=== PATIENT | male | born 1995 | race Two or more races ===

== ENCOUNTER 2017-10-29 14:08 | Emergency (ER) | payer MEDICAID ==
[~2017-10-29] VITALS: Ht 182.9 cm; Wt 83.9 kg
[~2017-10-29 14:08] MED LIST: AUGMENTIN 875-1 EAC1 ORAL; BACTROBAN15 GM TP; ERYTHROMYCIN3.5 GM LEFT EYE; NKM
[2017-10-29 14:14] VITALS: BP 141/75
[2017-10-29] MEDS ORDERED: PROMETHAZINE-C118 M1 ORAL (14:39)
[2017-10-29] MEDS ORDERED: TYLENOL EXTRA500 MG ORAL (14:39)
--- NOTE | 2017-10-29 14:40 | Emergency Room Report ---
History of Present Illness General Chief Complaint: Flu Like Symptoms Source: Patient Present Illness HPI 22-year-old male patient presents to ER complaining of cough and congestion 2 days. Patient reports cough is dry. Patient denies blood in cough. Patient reports history of sick contacts at home with similar symptoms. Patient denies chest pain, shortness of breath, fever. Patient reports he has a nasal spray at home that he has not begun to use yet. Patient reports cough is worse at night. Patient reports he has not taken any medication for relief of symptoms. Patient denies nausea, vomiting, diarrhea, neck pain. Patient denies sore throat , ear pain, headache. Allergies: Coded Allergies: No Known Allergies (Unverified , 01/22/13) Patient History Past Medical History: see triage record Reviewed Nursing Documentation: PMH: Agreed; PSxH: Agreed Nursing Documentation-PMH Past Medical History: No Stated History Review of Systems All Other Systems: negative except mentioned in HPI Physical Exam Vital Signs Date Time Temp Pulse Resp B/P (MAP) Pulse Ox O2 Delivery O2 Flow Rate FiO2 10/29/17 14:12 98.0 76 20 141/75 97 Room Air 98.1 Sp02 EP Interpretation: reviewed, normal General Appearance: well appearing, no apparent distress, alert, GCS 15, non- toxic Head: normocephalic, atraumatic Eyes: bilateral eye normal inspection, bilateral eye PERRL ENT: hearing grossly normal, normal pharynx, no angioedema, normal voice, TMs + canals normal, uvula midline, moist mucus membranes Neck: full range of motion Respiratory: lungs clear, normal breath sounds, no rhonchi, no respiratory distress, no accessory muscle use, no wheezing, speaking full sentences, other - no stridor Cardiovascular #1: regular rate, rhythm, no edema Musculoskeletal: back normal, digits/nails normal, gait/station normal, normal range of motion, non-tender Neurologic: alert, oriented x3, responsive, motor strength/tone normal, sensory intact Psychiatric: mood/affect normal Lymphatic: no adenopathy Medical Decision Making PA Attestation Dr. Fuller is my supervising Physician whom patient management has been discussed with. Diagnostic Impression: Primary Impression: Upper respiratory infection ER Course Pt presents to ED c/o cough and congestion. DDX considered but are not limited to influenza, viral URI, strep throat, rhinitis, sinusitis, otitis media. Low suspicion for pneumonia, will not order CXR at this time. VITAL SIGNS are WNL, patient is afebrile. Blood pressure mildly elevated patient denies chest pain shortness of breath vision changes abdominal pain. Does not require acute intervention ER. Patient instructed to follow-up with primary care doctor. CURES report negative. ER COURSE: Lungs clear to auscultation, no wheezes, rhonci or rales, patient is afebrile, low suspicion for pneumonia. Does not require imaging at this time. Likely viral etiology of symptoms. Symptomatic treatment. Followup with PCP for further treatment and/or referral as needed. Do not think nasal spray formula 3 days for patient of possible rhinitis medicamentosa if patient uses more than 3 days. DISCHARGE: -Rx given for Tylenol/Acetaminophen -Rx given for Promethazine with codeine syrup for cough sx. At this time pt is stable for d/c to home. Patient is resting comfortably, in no acute distress, nontoxic appearing. Patient to take medications as instructed Will provide with patient care instructions and any necessary prescriptions. Care plan and follow-up instructions provided. Patient instructed to follow-up with primary care provider in 3 - 5 days. Patient questions asked and answered. Patient reports understanding and agreement to treatment plan. ER precautions given. Patient instructed to return to ER immediately for any new or worsening of symptoms including but not limited to increasing SOB, persistent fever, intractable vomiting. Last Vital Signs Date Time Temp Pulse Resp B/P (MAP) Pulse Ox O2 Delivery O2 Flow Rate FiO2 10/29/17 14:14 76 20 Room Air 10/29/17 14:14 98.1 141/75 97 98.1 Disposition: HOME, SELF-CARE Condition: Stable Scripts Acetaminophen* (TYLENOL EXTRA STRENGTH*) 500 Mg Tablet 500 MG ORAL Q8H PRN for Prn Headache/Temp > 101, #30 TAB 0 Refills Prov: Augustin Boyer.A. 10/29/17 Codeine/Promethazine Hcl* (PROMETHAZINE-CODEINE SYRUP*) 118 Ml Syrup 5 ML ORAL Q6H PRN for For Cough, #118 ML 0 Refills Prov: Augustin Boyer P.A. 10/29/17 Patient Instructions: Upper Respiratory Infection, Adult Additional Instructions: Followup with primary care provider in 3 -5 days. Take medications as directed. Patient questions asked and answered. ER precautions given, patient instructed to return to ER immediately for any new or worsening of symptoms. Augustin Boyer Oct 29, 2017 14:40
[2017-10-29 14:46] VITALS: BP 138/72
== END 2017-10-29 14:46 | disposition home or self-care (01) ==
LOC: EMR 14:25
DX: J06.9 Acute upper respiratory infection, unspecified (principal)
CPT/HCPCS: 99284

== ENCOUNTER 2018-07-16 11:18 | Emergency (ER) | payer MEDICAID ==
[~2018-07-16] VITALS: Ht 180.3 cm; Wt 90.7 kg
[~2018-07-16 11:18] MED LIST changes: +PROMETHAZINE-C118 M1 ORAL; +TYLENOL EXTRA500 MG ORAL
[2018-07-16 11:47] VITALS: BP 138/79
--- NOTE | 2018-07-16 11:48 | NUR ---
ED Nurse Note: A/Ox4. Ambulated in to ER due to runny nose and cough x 3 days. Denies fever and chill.
[2018-07-16] MEDS ORDERED: PROMETHAZINE-C118 M1 ORAL (12:11)
[2018-07-16] MEDS ORDERED: TYLENOL EXTRA500 MG ORAL (12:11)
[2018-07-16] MEDS ORDERED: SUDAFED PE PRE1 EACH PO (12:11)
--- NOTE | 2018-07-16 12:11 | Emergency Room Report ---
History of Present Illness General Chief Complaint: Flu Like Symptoms Source: Patient Present Illness HPI 22-year-old male patient presents the ER complaining of cough for the past 3 days. Reports contacts at home with similar symptoms. Denies fever. Denies neck pain. Denies recent travel. Reports cough with sputum, denies hemoptysis. Denies vomiting. Denies fever, chest pain, shortness of breath. Denies abdominal pain. States not taking medication at home for relief of symptoms. Reports history of exercise-induced asthma, states has not had to use his inhaler for relief of symptoms. Reports cough worse at night. Denies calf pain. Denies cigarette smoking. Allergies: Coded Allergies: No Known Allergies (Unverified , 07/16/18) Patient History Past Medical History: see triage record Reviewed Nursing Documentation: PMH: Agreed; PSxH: Agreed Nursing Documentation-PMH Past Medical History: No Stated History Review of Systems All Other Systems: negative except mentioned in HPI Physical Exam Vital Signs Date Time Temp Pulse Resp B/P (MAP) Pulse Ox O2 Delivery O2 Flow Rate FiO2 07/16/18 11:41 98.8 69 16 138/79 99 Room Air Sp02 EP Interpretation: reviewed, normal General Appearance: well appearing, no apparent distress, alert, GCS 15, non- toxic Head: normocephalic, atraumatic Eyes: bilateral eye normal inspection, bilateral eye PERRL ENT: hearing grossly normal, normal pharynx, no angioedema, normal voice, TMs + canals normal, uvula midline, moist mucus membranes Neck: full range of motion, no meningismus, no bony tend Respiratory: lungs clear, normal breath sounds, no rhonchi, no respiratory distress, no accessory muscle use, no wheezing, speaking full sentences Cardiovascular #1: regular rate, rhythm, no edema Gastrointestinal: non tender, soft, no mass, non-distended, no guarding, no rebound Genitourinary: no CVA tenderness Musculoskeletal: back normal, digits/nails normal, gait/station normal, normal range of motion, non-tender, no calf tenderness, Jude's Sign negative Neurologic: alert, oriented x3, responsive, motor strength/tone normal, sensory intact Psychiatric: mood/affect normal Skin: no rash Lymphatic: no adenopathy Medical Decision Making PA Attestation Dr. Rao is my supervising Physician whom patient management has been discussed with. Diagnostic Impression: Primary Impression: Upper respiratory infection ER Course Pt presents to ED c/o cough and sore throat. DDX considered but are not limited to influenza, viral URI, pneumonia, strep throat, rhinitis, sinusitis, otitis media, otitis externa. VITAL SIGNS are WNL, patient is afebrile. ER COURSE: Lungs clear to auscultation, no wheezes, rhonci or rales. patient afebrile. Low suspicion for pneumonia, will not order CXR at this time. no tonsillar exudates, no pharyngeal erythema, history of cough, no fever, no stridor, uvula midline, low suspicion for peritonsillar abscess. Likely viral etiology of symptoms. Symptomatic treatment. drink plenty of fluids. Salt water gargles for sore throat. Followup with PCP for further treatment and/or referral as needed. ER precautions given. Does not require refill of albuterol, advised to take inhaler as needed for breathing symptoms. Advised against smoking. CURES reviewed, provide patient with promethazine with codeine at discharge for cough symptoms. DISCHARGE: At this time pt is stable for d/c to home. Patient is resting comfortably, in no acute distress, nontoxic appearing. Patient to take medications as instructed Will provide with patient care instructions and any necessary prescriptions. Care plan and follow-up instructions provided. Patient instructed to follow-up with primary care provider in 3 - 5 days. Patient questions asked and answered. Patient reports understanding and agreement to treatment plan. ER precautions given. Patient instructed to return to ER immediately for any new or worsening of symptoms including but not limited to increasing SOB, persistent fever, intractable vomiting. - Please note that this Emergency Department Report was dictated using [employer] developer technology software, occasionally this can lead to erroneous entry secondary to interpretation by the dictation equipment. Last Vital Signs Date Time Temp Pulse Resp B/P (MAP) Pulse Ox O2 Delivery O2 Flow Rate FiO2 07/16/18 11:47 69 16 Room Air 07/16/18 11:47 98.8 138/79 99 Disposition: HOME, SELF-CARE Condition: Stable Scripts D-Methorphan/PE/Acetaminophen (Sudafed PE Pressure+Pain+Cough) 1 Each Tablet 1 EACH PO TID, #24 TAB Prov: Augustin Boyer 07/16/18 Acetaminophen* (TYLENOL EXTRA STRENGTH*) 500 Mg Tablet 500 MG ORAL Q8H PRN for Prn Headache/Temp > 101, #30 TAB 0 Refills Prov: Augustin Boyer 07/16/18 Codeine/Promethazine Hcl* (PROMETHAZINE-CODEINE SYRUP*) 118 Ml Syrup 5 ML ORAL Q6H PRN for For Cough, #100 ML 0 Refills Prov: Augustin Boyre 07/16/18 Patient Instructions: Upper Respiratory Infection, Adult, [id number] Additional Instructions: Followup with primary care provider in 3 -5 days. Take medications as directed. May cause drowsiness, do not take prior to drinking, driving, operating heavy machinery. Patient questions asked and answered. ER precautions given, patient instructed to return to ER immediately for any new or worsening of symptoms. Augustin Boyer Jul 16, 2018 12:11
[2018-07-16 12:24] VITALS: BP 138/79
--- NOTE | 2018-07-16 12:25 | NUR ---
ED Nurse Note: Patient is being discharged from medical care. Awake, alert and oriented x4. After care instructions, including prescriptions. Patient verbalized understanding of After care instructions. Patient signed patient consent in the medical record for patient destination upon discharge. All medical devices such as IV and ID band were removed. Patient ambulated out with all personal belongings with steady gait.
== END 2018-07-16 12:25 | disposition home or self-care (01) ==
LOC: EMR 12:03
DX: J06.9 Acute upper respiratory infection, unspecified (principal)
CPT/HCPCS: 99283

== ENCOUNTER 2018-08-05 13:29 | Emergency (ER) | payer MEDICAID ==
[~2018-08-05] VITALS: Ht 182.9 cm; Wt 88.5 kg
[~2018-08-05 13:29] MED LIST changes: +SUDAFED PE PRE1 EACH PO
[2018-08-05 14:05] VITALS: BP 132/74
--- NOTE | 2018-08-05 14:05 | NUR ---
ED Nurse Note: PT WALKED IN TO ER TODAY FROM HOME. AOX4. PT C/O PERSISTENT COUGH X 2 WEEKS. PT DENIES FEVER OR NASAL CONGESTION. ORAL TEMP AT BEDSIDE: 98.4F. LUNG SOUNDS CLEAR IN ALL LOBES. NO SIGNS OF RESPIRATORY DISTRESS OR RETRACTIONS NOTICED.
[2018-08-05] MEDS ORDERED: PROMETHAZINE-C118 M1 ORAL (14:34)
[2018-08-05] MEDS ORDERED: PREDNISONE20 MG ORAL (14:34)
[2018-08-05] MEDS ORDERED: ALBUTEROL SULF8.5 GM INH (14:34)
[2018-08-05 14:40] VITALS: BP 132/74
--- NOTE | 2018-08-05 14:41 | NUR ---
ED Nurse Note: PT SITTING PEACEFULLY IN BED IN NAD. AOX4. PRESCRIPTIONS AND DISCHARGE PAPERWORK EXPLAINED TO PT. PT VERBALIZES UNADERSTANDING AND ALL QUESTIONS ANSWERED. PRESCRIPTIONS AND DISCHARGE PAPERWORK GIVEN TO PT AND ID WRISTBAND REMOVED. PT WALKED OUT OF ER WITH STEADY GAIT AND ALL BELONGINGS.
--- NOTE | 2018-08-05 15:44 | Emergency Room Report ---
History of Present Illness General Chief Complaint: Upper Respiratory Illness Source: Patient Present Illness HPI 22-year-old male presents ED for evaluation. Complaining of cough and congestion 2.5 weeks. States he was seen here beginning of July and was noted have URI. Was prescribed medications states symptoms persisted. Was seen by his PMD this week and was prescribed amoxicillin. States he is only taking one or 2 tablets a day because "does not have time". Denies fevers or chills. Denies chest pain or shortness of breath. History of asthma. States he does not have an inhaler at this time. Coughing all night. No other aggravating relieving factors. Denies any other associated symptoms Allergies: Coded Allergies: No Known Allergies (Unverified , 07/16/18) Patient History Past Medical History: asthma Past Surgical History: none Pertinent Family History: none Social History: Denies: smoking, alcohol use, drug use Immunizations: UTD Reviewed Nursing Documentation: PMH: Agreed; PSxH: Agreed Nursing Documentation-PMH Past Medical History: No Stated History Review of Systems All Other Systems: negative except mentioned in HPI Physical Exam Vital Signs Date Time Temp Pulse Resp B/P (MAP) Pulse Ox O2 Delivery O2 Flow Rate FiO2 08/05/18 14:03 98.2 54 20 141/77 98 Room Air Sp02 EP Interpretation: reviewed, normal General Appearance: no apparent distress, alert, GCS 15, non-toxic Head: normocephalic, atraumatic Eyes: bilateral eye normal inspection, bilateral eye PERRL ENT: hearing grossly normal, normal pharynx, no angioedema, normal voice Neck: full range of motion, supple/symm/no masses Respiratory: chest non-tender, lungs clear, normal breath sounds, speaking full sentences Cardiovascular #1: regular rate, rhythm, no edema Cardiovascular #2: 2+ carotid (R), 2+ carotid (L), 2+ radial (R), 2+ radial (L) , 2+ dorsalis pedis (R), 2+ dorsalis pedis (L) Gastrointestinal: normal bowel sounds, non tender, soft, non-distended, no guarding, no rebound Rectal: deferred Genitourinary: normal inspection, no CVA tenderness Musculoskeletal: back normal, gait/station normal, normal range of motion, non- tender Neurologic: alert, oriented x3, responsive, motor strength/tone normal, sensory intact, speech normal Psychiatric: judgement/insight normal, memory normal, mood/affect normal, no suicidal/homicidal ideation Reflexes: 3+ bicep (R), 3+ bicep (L), 3+ tricep (R), 3+ tricep (L), 3+ knee (R) , 3+ knee (L) Skin: normal color, no rash, warm/dry, well hydrated Lymphatic: no adenopathy Medical Decision Making Diagnostic Impression: Primary Impression: Atypical pneumonia ER Course Hospital Course 22-year-old male presents to ED complaining of cough x 2.5 weeks Differential diagnoses include: URI, pharyngitis, otitis media, asthma Clinical course Patient placed on stretcher. After initial history, physical exam reveals a young male in no acute distress. Bilateral TM unremarkable. No pharyngeal erythema. No tonsillar exudates. No lymphadenopathy. lungs clear. abdomen soft. Discussed findings with patient. I explained the importance of taking the antibiotics as prescribed. He is also on day 2 of antibiotics and there will likely be no effect yet. We will prescribe inhaler, steroids, cough medication Safe for discharge close outpatient follow-up. States he has a PMD Diagnosis - atypical pneumonia Stable and discharged home with Rx prednisone, albuterol, promethazine/codeine. continue abx as prescribed. Instructed to followup with PMD. Return to ED if symptoms recur or worsen Last Vital Signs Date Time Temp Pulse Resp B/P (MAP) Pulse Ox O2 Delivery O2 Flow Rate FiO2 08/05/18 14:40 98.3 64 17 132/74 98 Room Air Status: improved Disposition: HOME, SELF-CARE Condition: Stable Scripts Albuterol Sulfate* (ALBUTEROL SULFATE MDI*) 8.5 Gm Hfa.aer.ad 2 PUFF INH Q6H, #1 EA 0 Refills Prov: Glenn Rao MD 08/05/18 Prednisone* (PREDNISONE*) 20 Mg Tablet 40 MG ORAL DAILY, #10 TAB Prov: Glenn Rao MD 08/05/18 Codeine/Promethazine Hcl* (PROMETHAZINE-CODEINE SYRUP*) 118 Ml Syrup 5 ML ORAL Q6H PRN for For Cough, #118 ML 0 Refills Prov: Glenn Rao MD 1/27/19 Referrals: NON PHYSICIAN (PCP) Patient Instructions: Community-Acquired Pneumonia, Adult, [id number] Additional Instructions: continue antibiotics as directed. followup with PMD Glenn Rao MD Aug 05, 2018 15:44
== END 2018-08-05 14:40 | disposition home or self-care (01) ==
LOC: EMR 14:15
DX: J18.9 Pneumonia, unspecified organism (principal)
CPT/HCPCS: 99283

== ENCOUNTER 2018-09-10 17:49 | Emergency (ER) | payer MEDICAID ==
[~2018-09-10] VITALS: Ht 182.9 cm; Wt 133.8 kg
[~2018-09-10 17:49] MED LIST changes: +ALBUTEROL SULF8.5 GM INH; +PREDNISONE20 MG ORAL
[2018-09-10 18:12] VITALS: BP 129/79
--- NOTE | 2018-09-10 18:19 | NUR ---
ED Nurse Note: patient ambulated to ER complaining of cough, SOB. per patient he has brown sputum when he coughs. AAO x 4, VSS at this time, skin is dry inact. patient has nonlabored breathing, O2 sat a 98%.
--- NOTE | 2018-09-10 18:34 | Emergency Room Report ---
History of Present Illness General Chief Complaint: Upper Respiratory Illness Source: Patient Present Illness HPI 22-year-old male presents to the emergency department complaining of persistent cough times one week with mucus production 3 days. Patient denies fevers or chills she reports history of exertional asthma. Patient states that he has been utilizing his inhaler frequently and is almost out. Patient denies sore throat, neck pain/stiffness, headache/photophobia, ear pain or body aches. Patient states he is not up-to-date with this years flu vaccination. He denies significant past medical history. Denies pain at this time. Allergies: Coded Allergies: No Known Allergies (Unverified , 09/10/18) Patient History Past Medical History: see triage record Past Surgical History: none Pertinent Family History: none Reviewed Nursing Documentation: PMH: Agreed; PSxH: Agreed Nursing Documentation-PMH Past Medical History: No History, Except For Hx Asthma: Yes Review of Systems All Other Systems: negative except mentioned in HPI Physical Exam Vital Signs Date Time Temp Pulse Resp B/P (MAP) Pulse Ox O2 Delivery O2 Flow Rate FiO2 09/10/18 18:01 98.4 99 16 144/88 98 Room Air Sp02 EP Interpretation: reviewed, normal General Appearance: no apparent distress, alert, GCS 15, non-toxic Head: normocephalic, atraumatic Eyes: bilateral eye normal inspection, bilateral eye PERRL ENT: hearing grossly normal, normal voice, TMs + canals normal, uvula midline, nasal congestion Neck: full range of motion Respiratory: chest non-tender, lungs clear, normal breath sounds, no respiratory distress, no accessory muscle use, no wheezing, speaking full sentences Cardiovascular #1: regular rate, rhythm Musculoskeletal: back normal, gait/station normal, normal range of motion, non- tender Neurologic: alert, oriented x3, responsive, motor strength/tone normal, sensory intact, speech normal, grossly normal Psychiatric: judgement/insight normal Skin: normal color, no rash, warm/dry, well hydrated Lymphatic: no adenopathy Medical Decision Making PA Attestation Dr. Childs is my supervising Physician whom patient management has been discussed with. Diagnostic Impression: Primary Impression: Bronchitis ER Course 22-year-old male presents to the emergency department complaining of persistent cough times one week with mucus production 3 days. Patient denies fevers or chills she reports history of exertional asthma. Patient states that he has been utilizing his inhaler frequently and is almost out. Patient denies sore throat, neck pain/stiffness, headache/photophobia, ear pain or body aches. Patient states he is not up-to-date with this years flu vaccination. He denies significant past medical history. Denies pain at this time. Ddx considered but are not limited to URI, pneumonia, PE, strep pharyngitis, meningitis. Vital signs: Pt.is afebrile VS are WNL H&PE are most consistent with bronchitis ORDERS: none required at this time, the diagnosis is clinical ED INTERVENTIONS: None required at this time. DISCHARGE: At this time pt. is stable for d/c to home. Will provide printed patient care instructions, and any necessary prescriptions. Care plan and follow up instructions have been discussed with the patient prior to discharge. Last Vital Signs Date Time Temp Pulse Resp B/P (MAP) Pulse Ox O2 Delivery O2 Flow Rate FiO2 09/10/18 18:12 78 18 Room Air 09/10/18 18:12 98.5 129/79 98 Disposition: HOME, SELF-CARE Condition: Stable Scripts Cetirizine Hcl/Pseudoephedrine (ZYRTEC-D TABLET) 1 Each Tab.er.12h 1 EACH ORAL Q12HR for 7 Days, #14 TAB Prov: Kim Robles 09/10/18 Codeine/Promethazine Hcl* (PROMETHAZINE-CODEINE SYRUP*) 118 Ml Syrup 5 ML ORAL Q6H PRN for For Cough, #120 ML 0 Refills Prov: Kim Robles 09/10/18 Guaifenesin (Guaifenesin) 1,200 Mg Tab.er.12h 1200 MG PO Q12HR, #20 TAB Prov: Kim Robles 09/10/18 Albuterol Sulfate* (ALBUTEROL SULFATE MDI*) 8.5 Gm Hfa.aer.ad 2 PUFF INH Q3H, #1 INH 0 Refills Prov: Kim Robles 09/10/18 Patient Instructions: Acute Bronchitis, [id number] Additional Instructions: Take medications as directed. Follow up with a Primary Care Provider in 3-5 days, even if your symptoms have resolved. --Please review list of primary care clinics, if you do not already have a primary care provider Return sooner to ED if new symptoms occur, or current symptoms become worse. Do not drink alcohol, drive, or operate heavy machinery while taking Cough Syrup as this may cause drowsiness. - Please note that this Emergency Department Report was dictated using [employer] instructor technology software, occasionally this can lead to erroneous entry secondary to interpretation by the dictation equipment. Kim Robles Sep 10, 2018 18:34
[2018-09-10] MEDS ORDERED: ZYRTEC-D TABLE1 EACH ORAL (18:35)
[2018-09-10] MEDS ORDERED: PROMETHAZINE-C118 M1 ORAL (18:35)
[2018-09-10] MEDS ORDERED: ALBUTEROL SULF8.5 GM INH (18:35)
[2018-09-10] MEDS ORDERED: GUAIFENESIN1200 MG PO (18:35)
[2018-09-10 18:43] VITALS: BP 130/79
--- NOTE | 2018-09-10 18:44 | NUR ---
ED Nurse Note: Pt cleared by health care Provider for discharge. DC instructions/prescription was given and explained to pt and verbalized understanding of teachings. All medical deviecs such as ID band removed. Pt is AAO x4, ambulatory and left with all personal belongings.
== END 2018-09-10 18:43 | disposition home or self-care (01) ==
LOC: EMR 18:29
DX: J45.909 Unspecified asthma, uncomplicated (principal)
CPT/HCPCS: 99282

== ENCOUNTER 2018-09-26 14:28 | Emergency (ER) | payer MEDICAID ==
[~2018-09-26] VITALS: Ht 180.3 cm; Wt 86.2 kg
[~2018-09-26 14:28] MED LIST changes: +GUAIFENESIN1200 MG PO; +ZYRTEC-D TABLE1 EACH ORAL
--- NOTE | 2018-09-26 14:35 | NUR ---
ED Nurse Note: PT WALKED IN TO ER TODAY FROM HOME. AOX4. PT C/O SORE THROAT AND PRODUCTIVE COUGH X 4 DAYS. PT DENIES FEVER, NAUSEA, OR VOMITING. NO SIGNS OF RESPIRATORY DISTRESS OR RETRACTIONS NOTED.
[2018-09-26 14:36] VITALS: BP 146/86
[2018-09-26 15:50] VITALS: BP 132/82
--- NOTE | 2018-09-26 15:52 | Emergency Room Report ---
History of Present Illness General Chief Complaint: Sore Throat Source: Patient Present Illness HPI 23-year-old male presents to the emergency department complaining of 10 out of 10 severity sore throat, nasal congestion and rhinorrhea and cough 3 days. Patient reports he has been taking plain Claritin which has not provided any relief of his symptoms. Patient denies fevers, chills, recent travel or ill contacts with similar symptoms. Patient denies ear pain, headache, photophobia or neck pain/stiffness. Patient denies significant past medical history any denies any aggravating or relieving factors. Patient denies other medical complaints at this time. he reports history of exertional asthma he denies smoking. Allergies: Coded Allergies: No Known Allergies (Unverified , 09/10/18) Patient History Past Medical History: see triage record Past Surgical History: none Pertinent Family History: none Reviewed Nursing Documentation: PMH: Agreed; PSxH: Agreed Nursing Documentation-PM Past Medical History: No History, Except For Hx Asthma: Yes Review of Systems All Other Systems: negative except mentioned in HPI Physical Exam Vital Signs Date Time Temp Pulse Resp B/P (MAP) Pulse Ox O2 Delivery O2 Flow Rate FiO2 09/26/18 14:30 98.4 64 18 160/94 100 Room Air Sp02 EP Interpretation: reviewed, normal General Appearance: no apparent distress, alert, GCS 15, non-toxic Head: normocephalic, atraumatic Eyes: bilateral eye normal inspection, bilateral eye PERRL ENT: hearing grossly normal, normal voice, TMs + canals normal, uvula midline, moist mucus membranes, pharyngeal erythema, other - no tonsillar swelling or exudates, some evidence of PND. Neck: full range of motion, no meningismus Respiratory: chest non-tender, lungs clear, normal breath sounds, no respiratory distress, no wheezing, speaking full sentences Cardiovascular #1: regular rate, rhythm Musculoskeletal: back normal, gait/station normal, normal range of motion, non- tender Neurologic: alert, oriented x3, responsive, motor strength/tone normal, sensory intact, speech normal, grossly normal Psychiatric: judgement/insight normal Skin: normal color, no rash, warm/dry, well hydrated Lymphatic: no adenopathy Medical Decision Making PA Attestation Dr. Wong is my supervising Physician whom patient management has been discussed with. Diagnostic Impression: Primary Impression: Post-nasal drainage Additional Impressions: Pharyngitis Qualified Codes: J02.9 - Acute pharyngitis, unspecified Drug-seeking behavior ER Course 23-year-old male presents to the emergency department complaining of 10 out of 10 severity sore throat, nasal congestion and rhinorrhea and cough 3 days. Patient reports he has been taking plain Claritin which has not provided any relief of his symptoms. Patient denies fevers, chills, recent travel or ill contacts with similar symptoms. Patient denies ear pain, headache, photophobia or neck pain/stiffness. Patient denies significant past medical history any denies any aggravating or relieving factors. Patient denies other medical complaints at this time. he reports history of exertional asthma he denies smoking. Ddx considered but are not limited to: pharyngitis, strep, [employer], ludwigs angina, URI Vital signs: are WNL, pt. is afebrile H&PE are most consistent with: pharyngitis secondary to PND. ORDERS: None required at this time as the diagnosis is clinical ED INTERVENTIONS: none required at this time. d/w pt. conservative treatment, and to follow up with a primary care provider. pt given a list of primary care clinics for follow up. d/w pt. to return to the ED with worsening or new symptoms. DISCHARGE: At this time pt. is stable for d/c to home. Will provide printed patient care instructions, and any necessary prescriptions. Care plan and follow up instructions have been discussed with the patient prior to discharge. Last Vital Signs Date Time Temp Pulse Resp B/P (MAP) Pulse Ox O2 Delivery O2 Flow Rate FiO2 09/26/18 14:36 98.2 68 17 146/86 99 Room Air Disposition: HOME, SELF-CARE Condition: Stable Scripts Cetirizine Hcl/Pseudoephedrine (ZYRTEC-D TABLET) 1 Each Tab.er.12h 1 EACH ORAL Q12HR, #20 TAB Prov: Kim Robles 09/26/18 Guaifen/Dextromethorphan/PE (Tusnel Dm Liquid) 473 Ml Liquid 10 ML PO Q6HR, #473 ML Prov: Kim Robles 09/26/18 Referrals: [facility],REFERRING (PCP) Patient Instructions: Sore Throat Additional Instructions: Take medications as directed. Follow up with a Primary Care Provider in 3-5 days, even if your symptoms have resolved. --Please review list of primary care clinics, if you do not already have a primary care provider Return sooner to ED if new symptoms occur, or current symptoms become worse. - Please note that this Emergency Department Report was dictated using [employer] administrator technology software, occasionally this can lead to erroneous entry secondary to interpretation by the dictation equipment. Kim Robles Sep 26, 2018 15:52
[2018-09-26] MEDS ORDERED: ZYRTEC-D TABLE1 EACH ORAL (15:58)
[2018-09-26] MEDS ORDERED: TUSNEL DM LIQU473 ML PO (15:58)
--- NOTE | 2018-09-26 16:10 | NUR ---
ED Nurse Note: PT SITTING PEACEFULLY IN BED IN NAD. AOX4. PRESCRIPTIONS AND DISCHARGE PAPERWORK EXPLAINED TO PT. PT VERBALIZES UNDERSTANDING AND ALL QUESTIONS ANSWERED. PRESCRIPTIONS AND DISCHARGE PAPERWORK GIVEN TO PT AND ID WRISTBAND REMOVED. PT WALKED OUT OF ER WITH STEADY GAIT AND ALL BELONGINGS.
== END 2018-09-26 16:11 | disposition home or self-care (01) ==
LOC: EMR 15:01
DX: R09.82 Postnasal drip (principal); J02.9 Acute pharyngitis, unspecified; J45.909 Unspecified asthma, uncomplicated
CPT/HCPCS: 99282